=== PATIENT | male | born 1950 | race Caucasian/White ===

== ENCOUNTER → 2019-03-31 11:30 | Outpatient (BNVA) | payer MEDICARE, OTHER, SELFPAY | PROVIDERS: PCP Family Medicine; Visit Provider Registered Nurse | DX: R10.9 Unspecified abdominal pain (principal) | CPT/HCPCS: 81003 ==

== ENCOUNTER → 2020-04-22 09:19 | Outpatient (BNVA) | payer MEDICARE, OTHER, SELFPAY | PROVIDERS: PCP Family Medicine; Visit Provider Registered Nurse | DX: E78.5 Hyperlipidemia, unspecified (principal); Z12.5 Encounter for screening for malignant neoplasm of prostate; E66.9 Obesity, unspecified; Z00.00 Encounter for general adult medical examination without abnormal findings; Z53.20 Procedure and treatment not carried out because of patient's decision for unspecified reasons; Z71.3 Dietary counseling and surveillance | CPT/HCPCS: 80053; 80061; 85025; G0103 ==

== ENCOUNTER → 2020-10-01 08:16 | Outpatient (BNVA) | payer MEDICARE, OTHER, SELFPAY | PROVIDERS: PCP Family Medicine; Visit Provider Surgery | DX: Z11.52 Encounter for screening for COVID-19 (principal) | CPT/HCPCS: 87635 ==

== ENCOUNTER 2020-10-06 08:41 | Day surgery (SDC) | payer MEDICARE, OTHER, SELFPAY ==
[2020-10-04 13:52] VITALS: BMI 34.4
[2020-10-06 09:19] VITALS: BP 179/87; PULSE 66; RESP 16; TEMP 36.4; O2SAT 97
[2020-10-06] MEDS: sodium chloride 0.9% 1,000 ML 30 ML IV (09:24)
--- NOTE | 2020-10-06 09:35 | P.HP_ITS ---
Same Day Surgery H&P Indication for Procedure/HPI DATE OF PROCEDURE: October 06, 2020 CHIEF COMPLAINT/INDICATIONFOR SURGICAL PROCEDURE: Screening colonoscopy PREOP DIAGNOSIS: Screening colonoscopy PLANNED PROCEDRUE: Operation Date: 10/06/20 10:00 Proposed Procedures p Colonoscopy 01628 r19.5(Not Applicable) - Saul Anthony MD This is a pleasant 70 years old gentleman referred to my practice to discuss screening colonoscopy. Patient never had one before. He gives history of prostate cancer and he denies any bleeding per rectum or change in bowel habits. Also no history of nonintentional weight loss or colon cancer. Interim history 10/06/2020 Patient comes today for screening colonoscopy ROS All systems have been reviewed negative except as per the above or per problem list Medications/Allergies* Home Medications Medication Instructions Recorded Confirmed Type aspirin 81 mg tablet,delayed 81 mg PO ONCE 03/25/19 10/06/20 History release cholecalciferol (vitamin D3) 125 5,000 unit PO ONCE 03/25/19 10/06/20 History mcg (5,000 unit) capsule omega-3 fatty acids 1,000 mg 1,000 mg PO DAILY cap 03/25/19 10/06/20 History capsule potassium 99 mg tablet mg PO 03/25/19 10/05/20 History Allergies/Adverse Reactions Allergy/AdvReac Type Severity Reaction Status Date / Time No Known Allergies Allergy Verified 10/06/20 09:36 Current Medications: Generic Name Dose Route Start Last Admin Trade Name Freq PRN Reason Stop Dose Admin Sodium Chloride 1,000 mls @ 30 mls/hr 10/06/20 09:00 10/06/20 09:24 Sodium Chloride 0.9% IV 10/07/20 08:59 30 mls/hr .Q24H LEIDY Administration Pertinent History/Comorbid Conditions* Medical History (Updated 09/13/20 @ 15:42 by YASIR Means) Idiopathic neuropathy Prostate cancer 2018. Family History (Updated 03/25/19 @ 10:15 by Ernesto Mckinney LPN) Diabetes Heart disease Hypertension Sister Social History Smoking and tobacco status: never smoked Alcohol intake: former Adopted: No Pertinent Exam Findings alert, oriented x 3, clear to auscultation bilaterally, regular rate & rhythm and procedure specific exam findings (Abdominal examination nontender nondistended soft) Recommendations Surgery/Procedure today (Screening colonoscopy) Other Plans: Plan of care; After thorough history and physical examination and reviewing the chart, plan to perform screening colonoscopy. I discussed with the patient in details the risks,benefits,alternatives and indications.The risk of aspiration, bleeding, soft tissue injury, perforation of the colon and other potential concomitant complications were explained to the patient in details,also the potential need for Laproscoy/Laparotomy to repair any related complications including but not limited to colectomy and or Closotomy.The patient understood this well and did agree to proceed. Rationale was carefully and clearly discussed with the patient.Appropriate i nformed consent have been reviewed and signed All questions have been answered and all concerns have been addressed to patient's satisfaction. Verbal and written Instructions were given to the patient for colonoscopy prep Coding Level of Care Code Acute Web Content & Social Media Manager for [employer]
--- NOTE | 2020-10-06 09:48 | ANES.PREANE2 ---
Pre-Anesthetic Assessment Pre-Anesthetic Assessment: Height/Weight: Height 1.7 m Weight 99.79 kg Temp Pulse Resp BP Pulse Ox 97.6 F 66 16 179/87 97 10/06/20 09:19 10/06/20 09:19 10/06/20 09:19 10/06/20 09:19 10/06/20 09:19 Preop Diagnosis: Screening colonoscopy Proposed Procedure: Operation Date: 10/06/20 10:00 Proposed Procedures p Colonoscopy 88595 r19.5(Not Applicable) - Saul Anthony MD Familial anesthetic complications: None Was Beta Mily taken within 24 hours: N/A Was Clonidine taken within 24 hours: N/A Last intake: Intake Last Liquid Date 10/05/20 Last Liquid Time 22:30 Last Solid Date 10/05/20 Last Solid Time 12:00 Social: Social History: No alcohol and No tobacco Exam: Pre-Anes Outpt Exam: alert, oriented x 3, clear to auscultation bilaterally and regular rate & rhythm Airway: Cervical ROM: WNL MP: 1 Dentition: Full Additional comments: large neck circumference CV/HEM: CV/HEM: CAD (stents > 1 year ago) and HTN Metabolic: Metabolic: DM and Morbid obesity Anesthetic Plan: ASA status: 3 Anesthesia: MAC Risk of > 500 ml blood loss (7ml/kg in children): No Meds/Allergies Current Medications: Current Medications Generic Name Dose Route Start Last Admin Trade Name Freq PRN Reason Stop Dose Admin Sodium Chloride 1,000 mls @ 30 ml s/hr 10/06/20 09:00 10/06/20 09:24 Sodium Chloride 0.9% IV 10/07/20 08:59 30 mls/hr .Q24H LEIDY Administration PFSH Anesthesia PFSH: Medical History (Updated 09/13/20 @ 15:42 by YASIR Means) Idiopathic neuropathy Prostate cancer 2018. Family History Sister Hypertension Other Diabetes Heart disease Social History Smoking and tobacco status: never smoked Alcohol intake: former Adopted: No Data Anesthesia Cardiac Studies: No Data to Display
[2020-10-06 10:18] VITALS: BP 111/69; PULSE 66; RESP 16; TEMP 36.4; O2SAT 96
--- NOTE | 2020-10-06 10:24 | ANE.PACU2 ---
Inpatient post-anesthesia follow up: Airway intact: Yes Vital signs: Temperature 97.6 F Pulse Rate 66 Respiratory Rate 16 Blood Pressure 179/87 Pulse Oximetry 97 Oxygen Delivery Me thod Room Air Oxygen Flow Rate Fraction of Inspir ed Oxygen Hydration adequate: Yes Nausea and vomiting: No Mental status: Baseline
[2020-10-06 10:33] VITALS: BP 118/77; PULSE 68; RESP 16; TEMP 36.4; O2SAT 97
== END 2020-10-06 11:05 | disposition home or self-care (01) ==
PROVIDERS: PCP Family Medicine; Visit Provider Surgery
PROC: 0DJD8ZZ Inspection of Lower Intestinal Tract, Via Natural or Artificial Opening Endoscopic (ICD-10-PCS; CPT 45378; principal; 2020-10-06 10:00)
DX: Z12.11 Encounter for screening for malignant neoplasm of colon (principal); K63.5 Polyp of colon; Z79.82 Long term (current) use of aspirin; Z85.46 Personal history of malignant neoplasm of prostate; Z82.49 Family history of ischemic heart disease and other diseases of the circulatory system; I25.10 Atherosclerotic heart disease of native coronary artery without angina pectoris; Z95.5 Presence of coronary angioplasty implant and graft; I10 Essential (primary) hypertension; E11.9 Type 2 diabetes mellitus without complications; E66.01 Morbid (severe) obesity due to excess calories; Z68.34 Body mass index [BMI] 34.0-34.9, adult
CPT/HCPCS: 45380; 88305; 96360; J2704; J7030

== ENCOUNTER 2021-07-04 12:08 | Outpatient (CLI) | payer MEDICARE, OTHER, SELFPAY ==
--- NOTE | 2021-07-04 11:45 | MR_ITS ---
WS: [id number] MRI LUMBAR SPINE NONCONTRAST HISTORY: G60.9 - Hereditary and idiopathic neuropathy, unspecified, numbness and pain in feet. COMPARISON: None available. TECHNIQUE: Sagittal and axial multisequence imaging is submitted. Prior fusion hardware at C3-4. Cervical canal is narrowed. Facet arthropathy encroaches into the post erior thecal sac at the T4 level. Straightening of the normal lumbar lordosis. Posterior fusion hardware extends from L4 to S1. Disc sp acers at L4-5 and L5-S1 with disc space narrowing. Degenerative spondylitic changes in the lumbar spine. Reactive marrow edema along the adjacent endpla saurabh of L3 and L4. Conus terminates normally at L1-2 disc level. L1-L2: Bilateral facet arthritis, LEFT greater than RIGHT. No stenosis. L2-L3: Mild annular disc bulging and osteophytic ridging. Ligamentum flavum hypertrophy and facet art hritis. Small amount of fluid in the facet joints. Very mild bilateral subarticular recess and forami nal narrowing. L3-L4: Diffuse annular disc bulging with a more focal LEFT foraminal disc protrusion encroaching upon the thecal sac. Moderate bilateral ligamentum flavum hypertrophy and facet arthritis. Moderate centr al and bilateral subarticular recess stenosis and mild to moderate bilateral foraminal stenosis. Sign ificant encroachment upon the traversing nerve roots in the lateral recesses. L4-L5: No significant stenosis. L5-S1: No significant stenosis or disc protrusions. The RIGHT foramina is poorly visualized due to ar tifact. MR/MR lumbar spine wo con* [id number] IMPRESSION: 1. Moderate central with bilateral subarticular recess stenosis at L3-4 with m ild to moderate bilateral foraminal stenosis due to combination of annular disc bulging, central and LEFT foraminal disc protrusions and osteophytes. Marked l igamentum flavum hypertrophy and facet arthritis. Significant encroachment upon the traversing L4 nerve roots bilaterally. 2. Prior posterior lumbar fusion from L4 to S1. 3. Mild bilateral subarticular recess and foraminal stenosis at L2-3.
== END 2021-07-04 12:09 | disposition home or self-care (01) ==
LOC: RAD 12:08
PROVIDERS: PCP Family Medicine; Visit Provider Registered Nurse
DX: G60.9 Hereditary and idiopathic neuropathy, unspecified (principal); M47.16 Other spondylosis with myelopathy, lumbar region; Z98.1 Arthrodesis status
CPT/HCPCS: 72148

== ENCOUNTER → 2022-01-17 11:30 | Outpatient (BNVA) | payer MEDICARE, OTHER, SELFPAY | PROVIDERS: PCP Family Medicine; Visit Provider Registered Nurse | DX: Z12.5 Encounter for screening for malignant neoplasm of prostate (principal); R73.9 Hyperglycemia, unspecified; Z13.6 Encounter for screening for cardiovascular disorders; I10 Essential (primary) hypertension; E78.5 Hyperlipidemia, unspecified | CPT/HCPCS: 80053; 80061; 83036; 85025; G0103 ==

== ENCOUNTER 2022-01-30 10:00 | Outpatient (CLI) | payer MEDICARE, OTHER, SELFPAY ==
--- NOTE | 2022-01-30 10:45 | CT_ITS ---
WS: [id number] LDCT LUNG CANCER SCREENING TECHNIQUE: Noncontrast CT of the chest with coronal and sagittal reformatted images. CLINICAL INFORMATION: Z00.00 - Encounter for general adult medical examination ... COMPARISON: None. DLP: 77.00 mGy.cm DIvol: Mean CTDIvol: 1.60 (mGy) All CT scans at [facility] use at least one of these dose optimization techniques: automat ed exposure control; mA and/or kV adjustment per patient size (includes targeted exams where dose is matched to clinical indication); or iterative reconstruction. FINDINGS: Lungs are well aerated. No acute pulmonary infiltrates. A few tiny micronodules. No suspici ous pulmonary parenchymal opacities. A few calcified granulomas. Aortic calcification. Normal caliber thoracic aorta. Sternotomy. CABG. Coronary calcification. No mediastinal or hilar lymphadenopathy. No axillary lymphadenopathy. Prior cholecystectomy clips. No rmal GE junction. Splenic artery calcification. Adrenal glands are normal. Hypertrophic changes thora cic spine. CT/CT lung screening [id number] IMPRESSION: LUNG-RADS: 2-Benign Appearance or Behavior FOLLOW UP: 12 Month: Continue annual screening with LDCT
== END 2022-01-30 10:01 | disposition home or self-care (01) ==
LOC: RAD 10:03
PROVIDERS: PCP Family Medicine; Visit Provider Registered Nurse
DX: Z12.2 Encounter for screening for malignant neoplasm of respiratory organs (principal)
CPT/HCPCS: 71271

== ENCOUNTER → 2022-03-14 15:38 | Outpatient (BNVA) | payer MEDICARE, OTHER, SELFPAY | PROVIDERS: PCP Family Medicine; Visit Provider Registered Nurse | DX: J10.1 Influenza due to other identified influenza virus with other respiratory manifestations (principal); R68.89 Other general symptoms and signs | CPT/HCPCS: 87400 ==

== ENCOUNTER → 2023-02-15 09:11 | Outpatient (BNVA) | payer MEDICARE, OTHER, SELFPAY | PROVIDERS: PCP Registered Nurse; Visit Provider Registered Nurse | DX: I10 Essential (primary) hypertension (principal); E11.9 Type 2 diabetes mellitus without complications; E55.9 Vitamin D deficiency, unspecified | CPT/HCPCS: 80053; 80061; 82306; 83036; 85025 ==

== ENCOUNTER 2023-12-10 07:39 | Outpatient (CLI) | payer MEDICARE, SELFPAY ==
--- NOTE | 2023-12-10 08:00 | MR_ITS ---
WS: [id number] MRI CERVICAL SPINE NONCONTRAST HISTORY: M54.12 - Radiculopathy, cervical region COMPARISON: None available. Technique: Multiplanar, multisequence noncontrast imaging of the cervical spine. Anterior cervical hardware extends from C3-C6. Interbody spacers and vertebral body screws are eviden t. Straightening of the normal cervical lordosis. 5 mm area of increased T2 and STIR signal in the central cervical cord at the C4 level. Craniocervical junction, C1 and C2 relationship, odontoid process and soft tissues are normal. C2-C3: Small RIGHT foraminal osteophytes. No stenosis. C3-C4: Mild osteophytic ridging with mild disc bulging and facet arthritis. Mild foraminal stenosis. C4-C5: Mild osteophytic ridging and facet arthritis. Encroachment upon the ventral thecal sac is pred ominantly by hypertrophic bone. Moderate central and bilateral foraminal stenosis. Slightly greater n arrowing of the LEFT foramen. C5-C6: Mild osteophytic ridging with facet joint arthritis and foraminal osteophytes. Moderate centra l with bilateral foraminal stenosis. C6-C7: Shallow central disc protrusion with marked annular disc bulging and osteophytic ridging. Disc osteophyte complexes in the foramina. Moderate to severe central with bilateral foraminal stenosis, LEFT greater than RIGHT. C7-T1: Very slight anterolisthesis of C7. Diffuse annular disc bulging with small disc osteophyte com plexes. Mild to moderate central with moderate bilateral foraminal stenosis, LEFT greater than RIGHT. Paraspinal soft tissue are normal. MR/MR cervical spin wo con* [id number] IMPRESSION: 1. No prior MRI evaluations of the cervical spine for comparison. 2. Prior anterior cervical fusion from C3-C6. 3. Increased T2 signal in the central cervical cord at the C4 level consistent with a small area of myelomalacia. 4. C4-5 and C5-6: Moderate central and bilateral foraminal stenosis,. 5. C6-7: Moderate to severe central with bilateral foraminal stenosis, LEFT gr eater than RIGHT. 6. C6-7: Mild to moderate central with moderate bilateral foraminal stenosis d ue to disc osteophyte complexes, LEFT greater than RIGHT.
== END 2023-12-10 07:40 | disposition home or self-care (01) ==
LOC: RAD 07:40
PROVIDERS: PCP Registered Nurse; Visit Provider Registered Nurse
DX: M54.12 Radiculopathy, cervical region (principal); M43.22 Fusion of spine, cervical region; G95.89 Other specified diseases of spinal cord; M99.61 Osseous and subluxation stenosis of intervertebral foramina of cervical region; M25.78 Osteophyte, vertebrae
CPT/HCPCS: 72141

== ENCOUNTER → 2024-07-29 14:55 | Outpatient (BNVA) | payer MEDICARE, SELFPAY | PROVIDERS: PCP Registered Nurse; Visit Provider Registered Nurse | DX: I10 Essential (primary) hypertension (principal) | CPT/HCPCS: 80053; 80061; 83721; 85025 ==

== ENCOUNTER → 2024-09-23 09:32 | Outpatient (BNVA) | payer MEDICARE, SELFPAY | PROVIDERS: PCP Registered Nurse; Visit Provider Registered Nurse | DX: I10 Essential (primary) hypertension (principal) | CPT/HCPCS: 80061 ==